=== PATIENT | female | born 1985 ===

== ENCOUNTER 2018-01-02 09:12 | Observation (INO) | payer OTHER ==
[2017-12-25 08:50] VITALS: BMI 34.2
[2018-01-02] MEDS ORDERED: Midazolam 2 MG/2 ML VIAL ONE ×2 (12:35→12:58)
[2018-01-02] MEDS ORDERED: Lidocaine 2% Inj (20ml) ONE (12:35)
[2018-01-02] MEDS ORDERED: Iodixanol 320 MG/ML 200 ML BOTTLE IV ONE (12:43)
[2018-01-02] MEDS ORDERED: Propofol 10 mg/ml Inj (20 ML) ONE (12:58)
--- NOTE | 2018-01-02 13:05 | CP.PCM.HP ---
<AshokAlicia JosephKvng - Last Filed: 01/02/18 19:35> History of Present Illness - History of Present Illness History of Present Illness: PMD Dr. Ovalle Oil And Gas Specialist: Dr. Nava HPI: 32 year old female with past medical history of fibroids and chronic anemia presents to the hospital for a uterine embolization with Dr. Rueda due to chronic anemia. Patient states after she had her in 2016 she started to have irregular bleeding and long menstrual periods. She states she currently had pain in her lower abdominal area and it is currently a 4/10 with the pain medications. She states it feels like an irritating pain and at its worse it is a 9/10. She denies fever, shortness of breath, chest pain, nausea, vomiting, dysuria, diarrhea or constipation. 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: LMP 12/02/17; irregular; periods can last from 3 days to one month Medications: denies Allergies: NKDA Family History: HTN Present on Admission - Present on Admission Any Indicators Present on Admission: No Review of Systems - Constitutional Constitutional: absent: Fever, Headache - EENT Eyes: absent: Blurred Vision - Cardiovascular Cardiovascular: absent: Chest Pain, Dyspnea, Palpitations - Respiratory Respiratory: absent: Dyspnea - Gastrointestinal Gastrointestinal: absent: Constipation, Diarrhea, Nausea, Vomiting - Neurological Neurological: absent: Dizziness, Headaches, Weakness Past Patient History - Past Medical History & Family History Past Medical History?: Yes - Past Social History Smoking Status: Never Smoked - CARDIAC Hx Cardiac Disorders: No - PULMONARY Hx Respiratory Disorders: No - NEUROLOGICAL Hx Neurological Disorder: No - HEENT Hx HEENT Problems: No - RENAL Hx Chronic Kidney Disease: No - ENDOCRINE/METABOLIC Hx Endocrine Disorders: No - HEMATOLOGICAL/ONCOLOGICAL Hx Blood Disorders: No - INTEGUMENTARY Hx Dermatological Problems: No - MUSCULOSKELETAL/RHEUMATOLOGICAL Hx Musculoskeletal Disorders: No - GASTROINTESTINAL Hx Gastrointestinal Disorders: No - GENITOURINARY/GYNECOLOGICAL Hx Genitourinary Disorders: Yes Other/Comment: HX: UTERINE BLEEDING; FIBROIDS - PSYCHIATRIC Hx Psychophysiologic Disorder: No - SURGICAL HISTORY Hx Surgeries: Yes Hx Section: Yes - ANESTHESIA Hx Anesthesia: Yes (C-SECT->BLOCK) Hx Anesthesia Reactions: No Hx Malignant Hyperthermia: No Meds Allergies/Adverse Reactions: Allergies Allergy/AdvReac Type Severity Reaction Status Date / Time No Known Allergies Allergy Verified 12/25/17 08:50 Physical Exam - Constitutional Appears: No Acute Distress - Head Exam Head Exam: NORMAL INSPECTION - Eye Exam Eye Exam: EOMI, Normal appearance - ENT Exam ENT Exam: Mucous Membranes Moist - Respiratory Exam Respiratory Exam: Clear to Auscultation Bilateral, NORMAL BREATHING PATTERN - Cardiovascular Exam Cardiovascular Exam: REGULAR RHYTHM, +S1, +S2 - GI/Abdominal Exam GI & Abdominal Exam: Normal Bowel Sounds, Soft. absent: Tenderness - Extremities Exam Extremities exam: Positive for: normal inspection. Negative for: joint swelling , pedal edema, tenderness - Neurological Exam Neurological exam: Alert, Oriented x3 - Psychiatric Exam Psychiatric exam: Normal Affect, Normal Mood - Skin Skin Exam: Normal Color, Warm Assessment & Plan - Assessment and Plan (Free Text) Assessment: 1.) History of Chronic Anemia secondary to fibroids - s/p uterine artery embolization 01/02/[address] Rueda - Dilaudid 1mg q4h prn - Morphine 2mg IV q6h prn - Zofran 4mg IV prn - f/u AM labs 2.) Prophylaxis - SCDs - Patient is ambulatory Case Discussed with Dr. Yoko Pulido PGY-1 <Juanito Babcock - Last Filed: 01/03/18 09:25> Results - Vital Signs Recent Vital Signs: Last Vital Signs Temp 98.6 F 01/03/18 07:40 Pulse 90 01/03/18 07:40 Resp 20 01/03/18 07:40 BP 146/90 01/03/18 07:40 Pulse Ox 96 01/03/18 07:40 - Labs Result Diagrams: 01/03/18 07:17 01/03/18 07:17 Labs: Laboratory Results - last 24 hr 01/03/18 01/03/18 07:17 07:17 WBC 10.4 D RBC 4.61 Hgb 12.0 Hct 35.3 MCV 76.6 L MCH 25.9 L MCHC 33.8 RDW 14.7 H Plt Count 286 MPV 8.1 Sodium 136 Potassium 3.7 Chloride 100 Carbon Dioxide 22 Anion Gap 17 BUN 10 Creatinine 0.6 L Est GFR ( Amer) > 60 Est GFR (Non-Af Amer) > 60 Random Glucose 111 H Calcium 9.0 Total Bilirubin 0.5 AST 24 ALT 19 Alkaline Phosphatase 73 Total Protein 8.1 Albumin 4.2 Globulin 3.9 Albumin/Globulin Ratio 1.1 Attending/Attestation - Attestation I have personally seen and examined this patient.: Yes I have fully participated in the care of the patient.: Yes I have reviewed all pertinent clinical information: Yes Notes (Text): 01/03/18 09:25 Medical attending: Patient was seen and examined by me, we saw together the patient with the medical assistant supervisor. I reviewed the above note by medical assistant supervisor and agree The patient is status post uterine embolization. She has a history of a lot of menometrorrhagia she explains to me that she's never had problems with her. Before until after a 2016 since then has developed a lot of problems with for fibroids. When we saw her she had just had the procedure done she reported having some pain however she also received IV pain medication just before walked into the room to see her So if her vital signs and lab work are stable tomorrow, we explained to the patient that we intend to discharge her thank you Juanito Babcock
--- NOTE | 2018-01-02 13:33 | CP.SDSHP ---
Same Day Surgery H & P - History Proposed Procedure: Uterine artery embolization Pre-Op Diagnosis: Uterine fibroids, menorrhagia, anemia - Allergies Allergies: Allergies No Known Allergies Allergy (Verified 12/25/17 08:50) - Physical Exam Mental Status: Alert & Oriented x3 Neuro: WNL Heart: WNL Lungs: WNL GI: WNL - Impression Impression: Pt with symptomatic uterine fibroids presents for UAE. Plan UAE. Informed consent obtained and risk of bleeding, hematoma, infection, uterine infarction and impact and fertility were discussed during the initial consultation and again prior to the procedure. Pt. Evaluated Today:Candidate for Anesthesia & Procedure: Yes (ASA 3 Malampati 3) - Date & Time Date: 01/02/18 Time: 12:30 Short Stay Discharge - Short Stay Discharge Admitting Diagnosis/Reason for Visit: UTERINE FIBROIDS,S/P UTERINE EMBOLIZATION Disposition: HOME/ ROUTINE
--- NOTE | 2018-01-02 13:35 | PCM.SURG1 ---
Surgeon's Initial Post Op Note - Surgeon's Notes Surgeon: Brady Kay MD Document Control Specialist: NONE Type of Anesthesia: IV Sedation Pre-Operative Diagnosis: Uterine fibroids, menorrhagia, anemia Operative Findings: Pelvic angiogram showed dilated and tortuous uterine arteries, R>L. Bilateral UAE performed with embosphere micropheres, 500-700 microns, until stasis of blood flow was achieved. Post-Operative Diagnosis: Uterine fibroids, menorrhagia, anemia Operation Performed: Uterine artery embolization Specimen/Specimens Removed: NONE Estimated Blood Loss: EBL {In ML}: 5 Blood Products Given: N/A Drains Used: No Drains Post-Op Condition: Good Date of Surgery/Procedure: 01/02/18 Time of Surgery/Procedure: 13:30
[2018-01-02] MEDS ORDERED: HYDROmorphone 0.5 mg/0.5 ml ISec IVP ONE (15:00)
[2018-01-02] MEDS ORDERED: HYDROmorphone 0.5 mg/0.5 ml ISec IVP STA ×2 (15:06→15:07)
[2018-01-02] MEDS ORDERED: HYDROmorphone 1 mg/ml ISec ONE (15:14)
[2018-01-02] MEDS ORDERED: Morphine 4 MG/ML VIAL IV PRN (15:27)
[2018-01-03 07:44] VITALS: BP 146/90; PULSE 90; RESP 20; TEMP 98.6
[2018-01-03 08:15] LABS: MEAN CELL VOLUME 76.6 fL (81.0-99.0); MEAN CORPUSCULAR HEMOGLOBIN 25.9 pg (27.0-31.0); MEAN CORPUSCULAR HGB CONC 33.8 g/dL (33.0-37.0); MEAN PLATELET VOLUME 8.1 fL (7.2-11.7); RBC 4.61 Mil/uL (3.80-5.20); RED CELL DISTRIBUTION WIDTH 14.7 % (11.5-14.5); WHITE BLOOD COUNT 10.4 K/uL (4.8-10.8)
[2018-01-03 08:59] LABS: ALB/GLOB RATIO 1.1 (1.0-2.1); ALBUMIN 4.2 g/dL (3.5-5.0); AST/SGOT 24 U/L (14-36); BLOOD UREA NITROGEN 10 mg/dL (7-17); GFR AFRICAN-AMERICAN > 60; GFR NON-AFRICAN AMERICAN > 60
[2018-01-03 09:12] LABS: ALT/SGPT 19 U/L (9-52)
[2018-01-03 11:25] VITALS: O2SAT 98
--- NOTE | 2018-01-03 11:30 | CP.PCM.DIS ---
Provider - Provider Date of Admission: 01/02/18 12:03 Attending physician: Juanito Babcock DO Primary care physician: PMD:Dr. Ovalle Consults: IR: Dr. Rueda Time Spent in preparation of Discharge (in minutes): 45 Hospital Course - Lab Results Lab Results: Most Recent Lab Values WBC 10.4 K/uL (4.8-10.8) D 01/03/18 07:17 RBC 4.61 Mil/uL (3.80-5.20) 01/03/18 07:17 Hgb 12.0 g/dL (11.0-16.0) 01/03/18 07:17 Hct 35.3 % (34.0-47.0) 01/03/18 07:17 MCV 76.6 fL (81.0-99.0) L 01/03/18 07:17 MCH 25.9 pg (27.0-31.0) L 01/03/18 07:17 MCHC 33.8 g/dL (33.0-37.0) 01/03/18 07:17 RDW 14.7 % (11.5-14.5) H 01/03/18 07:17 Plt Count 286 K/uL (130-400) 01/03/18 07:17 MPV 8.1 fL (7.2-11.7) 01/03/18 07:17 Sodium 136 mmol/L (132-148) 01/03/18 07:17 Potassium 3.7 mmol/L (3.6-5.2) 01/03/18 07:17 Chloride 100 mmol/L (98-107) 01/03/18 07:17 Carbon Dioxide 22 mmol/L (22-30) 01/03/18 07:17 Anion Gap 17 (10-20) 01/03/18 07:17 BUN 10 mg/dL (7-17) 01/03/18 07:17 Creatinine 0.6 mg/dL (0.7-1.2) L 01/03/18 07:17 Est GFR ( Amer) > 60 01/03/18 07:17 Est GFR (Non-Af Amer) > 60 01/03/18 07:17 Random Glucose 111 mg/dL (65-105) H 01/03/18 07:17 Calcium 9.0 mg/dl (8.6-10.4) 01/03/18 07:17 Total Bilirubin 0.5 mg/dL (0.2-1.3) 01/03/18 07:17 AST 24 U/L (14-36) 01/03/18 07:17 ALT 19 U/L (9-52) 01/03/18 07:17 Alkaline Phosphatase 73 U/L (38-126) 01/03/18 07:17 Total Protein 8.1 g/dL (6.3-8.3) 01/03/18 07:17 Albumin 4.2 g/dL (3.5-5.0) 01/03/18 07:17 Globulin 3.9 gm/dL (2.2-3.9) 01/03/18 07:17 Albumin/Globulin Ratio 1.1 (1.0-2.1) 01/03/18 07:17 - Hospital Course Hospital Course: Discharge Summary PMD:Dr. Ovalle Consults: Boot Turner: Dr. Nava, IR: Dr. Rueda PRINCIPAL DISCHARGE DIAGNOSES: Fibroids Anemia CC: UAE HISTORY OF PRESENT ILLNESS: 32 year old female with past medical history of fibroids and chronic anemia presents to the hospital for a uterine embolization with Dr. Rueda due to chronic anemia. Patient states after she had her c- section in 2016 she started to have irregular bleeding and long menstrual periods. She states she currently had pain in her lower abdominal area and it is currently a 4/10 with the pain medications. She states it feels like an irritating pain and at its worse it is a 9/10. She denies fever, shortness of breath, chest pain, nausea, vomiting, dysuria, diarrhea or constipation. 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 While admitted the patient underwent a uterine artery embolization for her fibroids. While admitted the patient was found to be hypokalemic and subsequently her electrolytes were replaced. Patient was seen and examined this morning and determined to be stable for discharge with the following instruction found below. Imaging: None done while admitted. Discharge Instructions: 1.Advised patient to follow up with PMD Dr. Ovalle within 7 to 10 days of discharge. 2.Advised patient to follow up with Dr. Nava (Color Separation Photographer) within 7 to 10 days of discharge. 3. Advised patient to return to hosptial for any new or worsening symptoms. Discharge Medications: 1. Percocet 5/325mg q8 po prn (Pain greater than 7/10), #9, No refills Discharge Exam - Head Exam Head Exam: NORMAL INSPECTION - Eye Exam Eye Exam: EOMI, Normal appearance, PERRL. absent: Periorbital tenderness Pupil Exam: NORMAL ACCOMODATION, PERRL. absent: Irregular, Unequal - ENT Exam ENT Exam: Mucous Membranes Moist, Normal Oropharynx - Respiratory Exam Respiratory Exam: Clear to PA & Lateral, NORMAL BREATHING PATTERN, UNREMARKABLE. absent: Decreased Breath Sounds, Rales, Rhonchi - Cardiovascular Exam Cardiovascular Exam: REGULAR RHYTHM, RRR, +S1, +S2. absent: Rubs - GI/Abdominal Exam GI & Abdominal Exam: Normal Bowel Sounds, Soft, Unremarkable. absent: Tenderness Additional comments: incision site is clean without signs of erythema or discharge. - Extremities Exam Extremities exam: full ROM, normal inspection - Back Exam Back exam: NORMAL INSPECTION. absent: CVA tenderness (L), CVA tenderness (R), paraspinal tenderness - Neurological Exam Neurological exam: Alert, CN II-XII Intact, Oriented x3 - Psychiatric Exam Psychiatric exam: Normal Affect, Normal Mood - Skin Skin Exam: Dry, Intact, Normal Color, Warm Discharge Plan - Discharge Medications Prescriptions: oxyCODONE/Acetaminophen [Percocet 5/325 mg Tab] 1 ea PO Q8 PRN #9 tab PRN Reason: Pain, Severe (8-10) - Follow Up Plan Condition: GOOD Disposition: HOME/ ROUTINE Instructions: Oxycodone/Acetaminophen (By mouth), Uterine Fibroids (DC)
--- NOTE | 2018-01-03 11:42 | PCM.IRP ---
History of Present Illness - History of Present Illness History of Present Illness: Mrs. Klein seen this am. Pt is s/p bilateral uterine artery embolization for symptomatic uterine fibroids. She is doing well. There is some pain. She has mild naussea. Groin looks good. There is no hematoma. Pt was given prescriptions: Percocet 5/325 mg PRN q 6 hr Toradol 10 mg PO q6 hr Zofran 4 mg PO q 12 hrs PRN Colace 100 mg po daily Clindamycin 300 mg po daily for 5 days She is instructed to call office with questions. We will see Mrs. Klein in follow up 1 month. Objective - Vital Signs/Intake and Output Vital Signs (last 24 hours): Vital Signs - 24 hr 01/02/18 01/03/18 01/03/18 17:01 00:04 02:14 Temperature 97.5 F L 97.9 F Pulse Rate 70 91 H Respiratory 20 19 Rate Blood Pressure 149/97 H 141/96 H O2 Sat by Pulse 98 96 96 Oximetry 01/03/18 01/03/18 01/03/18 06:37 07:40 08:00 Temperature 98.6 F Pulse Rate 90 Respiratory 20 Rate Blood Pressure 146/90 O2 Sat by Pulse 96 96 98 Oximetry Intake and Output (last 12 hours): Intake & Output 01/02/18 01/03/18 01/03/18 18:59 06:59 18:59 Intake Total 300 Output Total 2 Balance 298 Intake: Oral 300 Output: Urine 2 Urine, Voided 2 - Medications Medications: Current Medications Hydromorphone HCl (Dilaudid) 1 mg IVP Q4H PRN PRN Reason: Pain, moderate (4-7) Last Admin: 01/03/18 08:45 Dose: 1 mg Morphine Sulfate (Morphine) 2 mg IV Q6 PRN PRN Reason: Pain, moderate (4-7) Ondansetron HCl (Zofran Inj) 4 mg IVP DAILY@ONCE PRN PRN Reason: Nausea/Vomiting Last Admin: 01/03/18 08:54 Dose: 4 mg - Labs Labs (last 24 hours): Laboratory Results - last 24 hr 01/03/18 01/03/18 07:17 07:17 WBC 10.4 D RBC 4.61 Hgb 12.0 Hct 35.3 MCV 76.6 L MCH 25.9 L MCHC 33.8 RDW 14.7 H Plt Count 286 MPV 8.1 Sodium 136 Potassium 3.7 Chloride 100 Carbon Dioxide 22 Anion Gap 17 BUN 10 Creatinine 0.6 L Est GFR ( Amer) > 60 Est GFR (Non-Af Amer) > 60 Random Glucose 111 H Calcium 9.0 Total Bilirubin 0.5 AST 24 ALT 19 Alkaline Phosphatase 73 Total Protein 8.1 Albumin 4.2 Globulin 3.9 Albumin/Globulin Ratio 1.1
== END 2018-01-03 14:15 | disposition home or self-care (01) ==
LOC: C.SDS 09:12 → C.9S 12:03 → C.3T 16:18
PROVIDERS: ADMIT Hospitalist; ATTEND Hospitalist
DX: D25.9 Leiomyoma of uterus, unspecified (principal); N92.0 Excessive and frequent menstruation with regular cycle; D64.9 Anemia, unspecified; E87.6 Hypokalemia; Z82.49 Family history of ischemic heart disease and other diseases of the circulatory system
CPT/HCPCS: 36415; 37243; 80053; 85027; G0378; J1170; J1644; J2250; J2270; J2405; J3010; Q9966

== ENCOUNTER → 2019-02-07 | Outpatient (CLI) | payer OTHER | LOC: C.USIC 13:50 | DX: D25.9 Leiomyoma of uterus, unspecified (principal) ==